=== PATIENT | female | born 2000 | race Two or more races ===

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

== ENCOUNTER 2021-05-10 21:17 | Outpatient (CLI) | payer BC, MEDICAID, OTHER ==
[2021-05-10 21:49] LABS: MICROSCOPIC NOT IND
== END 2021-05-10 22:20 | disposition home or self-care (01) ==
LOC: LDOP 21:17
PROVIDERS: ATTEND Obstetrics & Gynecology
DX: O36.8120 Decreased fetal movements, second trimester, not applicable or unspecified (principal); Z3A.22 22 weeks gestation of pregnancy
CPT/HCPCS: 81003; 87086; 99211; G0463